=== PATIENT | male | born 1990 | race African-American/Black ===

== ENCOUNTER 2019-09-12 12:29 | Emergency (ER) | payer SELFPAY ==
[2019-09-12] MEDS ORDERED: Lidocaine 1% w/Epinephrine 1:100K 20 ML VIAL ONE ×3 (12:58→13:00)
== END 2019-09-12 13:16 | disposition home or self-care (01) ==
LOC: ERS 12:29
DX: L76.82 Other postprocedural complications of skin and subcutaneous tissue (principal); L08.9 Local infection of the skin and subcutaneous tissue, unspecified
CPT/HCPCS: 99283